=== PATIENT | female | born 1985 | race Caucasian/White ===

== ENCOUNTER 2019-12-02 12:30 | Emergency (ER) | payer SELFPAY ==
[2019-12-02] MEDS ORDERED: Bacitracin 1 PK ONE (13:04)
== END 2019-12-02 13:30 | disposition home or self-care (01) ==
LOC: BURERS 12:30
DX: S81.811A Laceration without foreign body, right lower leg, initial encounter (principal); I10 Essential (primary) hypertension; F17.210 Nicotine dependence, cigarettes, uncomplicated; W25.XXXA Contact with sharp glass, initial encounter; Y92.091 Bathroom in other non-institutional residence as the place of occurrence of the external cause